=== PATIENT | female | born 1965 | race Caucasian/White ===

== ENCOUNTER 2021-01-14 12:16 | Emergency (ER) | payer OTHER ==
[2021-01-14] MEDS ORDERED: Ketorolac 30 MG/ML SDV IM ONE (12:33)
--- NOTE | 2021-01-14 12:39 | EDM.PDOC ---
ED HPI GENERAL MEDICAL PROBLEM - General Chief Complaint: Upper Extremity Injury/Pain Stated Complaint: SLAMMED FINGER IN DOOR Time Seen by Provider: 01/14/21 12:31 Source of Information: Reports: Patient, RN Notes Reviewed History Limitations: Reports: No Limitations - History of Present Illness INITIAL COMMENTS - FREE TEXT/NARRATIVE: 55-year-old female presents emergency department today after a crush injury at work she injured digit #2 on her right hand was caught in a drawer she has full range of motion but she is in significant pain - Related Data Allergies Allergy/AdvReac Type Severity Reaction Status Date / Time cephalexin [From Keflex] AdvReac Rash Verified 01/14/21 12:32 Home Meds: Home Meds HCTZ/Triamterene [Dyazide 25-37.5 MG] 1 tab PO DAILY 01/14/21 [History] lisinopriL [Lisinopril] 10 mg PO DAILY 01/14/21 [History] Past Medical History Cardiovascular History: Reports: Hypertension Social & Family History - Tobacco Use Tobacco Use Status *Q: Never Tobacco User Review of Systems - Review of Systems Review Of Systems: See Below Musculoskeletal: Reports: Hand Pain Skin: Reports: Wound ED EXAM, GENERAL - Physical Exam Exam: See Below Free Text/Narrative:: Examination of the right hand I do appreciate a small puncture wound on the dorsal surface over the middle phalanges she has full range of motion of the digit radial pulses +2 Course - Vital Signs Last Recorded V/S: Last Vital Signs Temp 97 F 01/14/21 12:39 Pulse 68 01/14/21 12:39 Resp 16 01/14/21 12:39 BP 146/78 H 01/14/21 12:39 Pulse Ox 98 01/14/21 12:39 - Orders/Labs/Meds Orders: Active Orders 24 hr Category Date Time Status Bacitracin [Bacitracin Oint 1 GM] Med 01/14/21 13:20 Once 1 dose TOP ONETIME ONE Meds: Medications Discontinued Medications Generic Name Dose Route Start Last Admin Trade Name Freq PRN Reason Stop Dose Admin Ketorolac Tromethamine 30 mg 01/14/21 12:33 01/14/21 12:41 Ketorolac 30 Mg/Ml Sdv IM 01/14/21 12:34 30 mg ONETIME ONE Administration Departure - Departure Time of Disposition: 13:21 Disposition: Home, Self-Care 01 Condition: Fair Clinical Impression: Finger contusion Qualifiers: Encounter type: initial encounter Finger: index finger Damage to nail status: without damage Laterality: right Qualified Code(s): S60.021A - Contusion of right index finger without damage to nail, initial encounter - Discharge Information Instructions: Contusion, [id number] Referrals: PCP,None [Primary Care Provider] - Forms: ED Department Discharge Additional Instructions: Continue to use the finger splint as needed for comfort, Tylenol or Motrin as needed for pain control, please followup with your primary care provider in 3-5 days if not better, please call return to the emergency department with worsening of symptoms. Sepsis Event Note (ED) - Focused Exam Vital Signs: Vital Signs Temp Pulse Resp BP Pulse Ox 01/14/21 12:39 97 F 68 16 146/78 H 98 01/14/21 12:33 97 F 68 16 146/78 H 98 - My Orders Last 24 Hours: My Active Orders 01/14/21 13:20 Bacitracin [Bacitracin Oint 1 GM] 1 dose TOP ONETIME ONE - Assessment/Plan Last 24 Hours: My Active Orders 01/14/21 13:20 Bacitracin [Bacitracin Oint 1 GM] 1 dose TOP ONETIME ONE Plan: Assessment Acuity = acute Site and laterality = digit #2 right hand contusion puncture wound to that finger Etiology = trauma with a door Manifestations = none Location of injury = work Lab values = x-ray reveals no fracture Plan Follow-up with primary care next 3 to 5 days if not better, tetanus up-to-date This note was dictated using [employer] voice recognition software please call with any questions on syntax or grammar.
--- NOTE | 2021-01-14 13:05 | CR ---
Fingers Second Digit Rt F6 CLINICAL HISTORY: Injury FINDINGS: No fracture line is identified. There is a tiny ossific density off the ulnar aspect of the second DIP joint. This may represent a secondary ossification center or possibly tiny ligamentous avulsion
[2021-01-14] MEDS ORDERED: Bacitracin Oint 1 GM U/D Packet TOP ONE (13:20)
== END 2021-01-14 13:36 | disposition home or self-care (01) ==
LOC: JP.ED 12:16
DX: S60.021A Contusion of right index finger without damage to nail, initial encounter (principal); Z88.1 Allergy status to other antibiotic agents; Z79.899 Other long term (current) drug therapy; W23.0XXA Caught, crushed, jammed, or pinched between moving objects, initial encounter; Y99.0 Civilian activity done for income or pay
CPT/HCPCS: 73140; 96372; 99283; J1885